=== PATIENT | male | born 1945 | race Caucasian/White ===

== ENCOUNTER 2021-08-13 00:54 | Day surgery (SDC) | payer MEDICARE, SELFPAY ==
[2021-08-04 10:23] VITALS: BMI 26.6
[2021-08-13 09:15] VITALS: BP 126/80; PULSE 56; RESP 18; TEMP 36.1; O2SAT 100
[2021-08-13] MEDS: LACTATED RINGERS 1,000 ML 150 ML IV CONT (09:26)
--- NOTE | 2021-08-13 09:31 | WPDGICN ---
Assessment and Plan Assessment and plan (1) History of colon polyps: Code(s): Z86.010 - Personal history of colonic polyps Status: Inactive Assessment and Plan: Patient has a prior history of colon polyps. Most recently 2018. He presents today for follow-up colonoscopy screening. Further recommendations will be given after endoscopy. GI Consult Note Consult date/time: 08/13/21 09:31 HPI: Marilu Sim is a 76 year old male Presents for colonoscopy. Patient has a history of colon polyps on previous colonoscopies most recently 2018. Patient's current weight appetite bowel movements are normal. He denies abdominal pain. He has had no bleeding. Presents today for screening colonoscopy. Review of Systems Review of Systems: All systems reviewed & are unremarkable except as noted in HPI and below PMFSH Past Medical History Medical History (Updated 08/13/21 @ 09:32 by Julio Faustin MD) CAD in [place] artery Dyslipidemia GERD without esophagitis History of colon polyps Surgical History Surgical History History of bilateral inguinal hernia repair multiple. last was left inguinal hernia repair in 11/2010 History of heart artery stent (~09/2007) History of tonsillectomy (~194) [place] teeth extracted (~1960) Family History Family History Father Family history of coronary artery disease Family history of cardiovascular disease Mother Family history of coronary artery disease Acute myocardial infarction Family history of cardiovascular disease Sibling Family history of malignant neoplasm of ovary Other Cerebrovascular accident Diabetes mellitus Social History Social History Smoking packs per day: 1 Smoking cigarettes per day: 20.0 Years smoked: 30 Smoking pack-years: 30.00 Smoking status: Former smoker Tobacco type: cigarettes Second hand tobacco smoke exposure: No Smoking end date: 11/07/88 Alcohol intake: current Drinks per week: 12 Substance use: never Substance use type: does not use Living arrangements: with family Gender identity (if verbalized by the patient): Female Sexual Orientation (if Verbalized by the Patient): Straight or Heterosexual Spiritual care concerns: No Agree to blood products: Yes Meds Home Medications and Allergies Home Medications Medication Instructions Recorded Confirmed Type aspirin 325 mg tablet 325 mg PO DAILY 06/09/20 08/04/21 History jyyxcacw-nnf-nemsv acid 300 1 tablet PO DAILY 06/09/20 08/04/21 History mcg-lycopene 600 mcg-lutein 300 mcg tablet omega-3 fatty acids-fish oil 360 1 cap PO DAILY 06/09/20 08/04/21 History mg-1,200 mg capsule metoprolol succinate 50 mg 50 mg PO DAILY #90 tablet 03/05/21 08/04/21 Rx tablet,extended release 24 hr omeprazole 20 mg capsule,delayed 20 mg PO DAILY #90 cap 06/01/21 08/04/21 Rx release atorvastatin 40 mg tablet 40 mg PO QHS tablet 06/23/21 08/04/21 History ferrous sulfate 325 mg (65 mg 325 mg PO .2xwk tablet 06/23/21 08/04/21 History iron) tablet lutein 20 mg PO DAILY 08/04/21 08/04/21 History Allergies Allergy/AdvReac Type Severity Reaction Status Date / Time No Known Allergies Allergy Verified 08/13/21 09:13 Vital Signs Vital Signs - 24 hr 08/13/21 09:15 Temperature 96.9 F L Pulse Rate 56 L Respiratory Rate 18 Blood Pressure 126/80 Pulse Oximetry 100 Exam Narrative: Physical exam reveals patient to be alert. Vital signs stable. HEENT exam is unremarkable. Patient is anicteric. Lungs are clear to auscultation and percussion. Heart is without murmur or extra sounds. Abdominal exam bowel sounds are present soft nontender with no organomegaly. Digital external rectal exam is normal.
--- NOTE | 2021-08-13 09:50 | WPDANESEPPF ---
Anes - Initial Pre Proc Eval Procedure: Operation Date: 08/13/21 10:30 Proposed Procedures p Screening Colonoscopy - Julio Faustin MD Date/Time: 08/13/21 09:50 Surgeon: Julio Faustin MD Pre Op Diagnosis: hx of colon polyps Patient Data Age: 76 Gender: M Height: 1.75 m Weight: 79.6 kg Last Vital Signs Temp 96.9 F L 08/13/21 09:15 Pulse 56 L 08/13/21 09:15 Resp 18 08/13/21 09:15 BP 126/80 08/13/21 09:15 Pulse Ox 100 08/13/21 09:15 Allergies Allergy/AdvReac Type Severity Reaction Status Date / Time No Known Allergies Allergy Verified 08/13/21 09:13 Home Medications Medication Instructions Recorded Confirmed Type aspirin 325 mg tablet 325 mg PO DAILY 06/09/20 08/04/21 History jtcchgoj-qjx-jpcmq acid 300 1 tablet PO DAILY 06/09/20 08/04/21 History mcg-lycopene 600 mcg-lutein 300 mcg tablet omega-3 fatty acids-fish oil 360 1 cap PO DAILY 06/09/20 08/04/21 History mg-1,200 mg capsule metoprolol succinate 50 mg 50 mg PO DAILY #90 tablet 03/05/21 08/04/21 Rx tablet,extended release 24 hr omeprazole 20 mg capsule,delayed 20 mg PO DAILY #90 cap 06/01/21 08/04/21 Rx release atorvastatin 40 mg tablet 40 mg PO QHS tablet 06/23/21 08/04/21 History ferrous sulfate 325 mg (65 mg 325 mg PO .2xwk tablet 06/23/21 08/04/21 History iron) tablet lutein 20 mg PO DAILY 08/04/21 08/04/21 History Patient hx anesthesia problems: none Family hx anesthesia problems: none Results Review: All pre-operative results and documents have been reviewed as part of the pre-operative evaluation. COUNT INCLUDES THE [facility] Past Medical History Medical History (Updated 08/13/21 @ 09:32 by Julio Faustin MD) CAD in [place] artery Dyslipidemia GERD without esophagitis History of colon polyps Surgical History Surgical History History of bilateral inguinal hernia repair multiple. last was left inguinal hernia repair in 11/2010 History of heart artery stent (~09/2007) History of tonsillectomy (~1949) [place] teeth extracted (~1960) Family History Family History Father Family history of coronary artery disease Family history of cardiovascular disease Mother Family history of coronary artery disease Acute myocardial infarction Family history of cardiovascular disease Sibling Family history of malignant neoplasm of ovary Other Cerebrovascular accident Diabetes mellitus Social History Social History Smoking packs per day: 1 Smoking cigarettes per day: 20.0 Years smoked: 30 Smoking pack-years: 30.00 Smoking status: Former smoker Tobacco type: cigarettes Second hand tobacco smoke exposure: No Smoking end date: 11/07/88 Alcohol intake: current Drinks per week: 12 Substance use: never Substance use type: does not use Living arrangements: with family Gender identity (if verbalized by the patient): Female Sexual Orientation (if Verbalized by the Patient): Straight or Heterosexual Spiritual care concerns: No Agree to blood products: Yes Anes - Eval Final PreProcedure Day of Procedure 08/13/21 09:50 Patient weight: overweight Heart: regular rate and rhythm Lungs: clear to auscultation Airway: Mallampati scale class II Neurological: alert and oriented Last oral intake: >/= 8 hours ASA classification: III Emergent: no Anesthetic plan: proceed Anesthesia type and monitoring: general GIVS and standard monitoring Results Review: All pre-operative results and documents have been reviewed as part of the pre-operative evaluation. Informed Consent: The patient's anesthetic plan and its attendant risks and benefits were discussed with the patient/family/POA. Questions were solicited and answers provided to the satisfaction of the patient/family/POA.
--- NOTE | 2021-08-13 10:26 | SUR.OPER ---
Dr. Faustin advised that one out of 3 polyps not retrieved. Yamile Bernal 08/13/21 @ 10:27
[2021-08-13 10:29] VITALS: BP 108/53; PULSE 54; RESP 16; O2SAT 98
[2021-08-13 10:39] VITALS: BP 116/52; PULSE 50; RESP 14; O2SAT 99
[2021-08-13 10:49] VITALS: BP 123/66; PULSE 52; RESP 14; O2SAT 100
== END 2021-08-13 11:03 | disposition home or self-care (01) ==
PROVIDERS: PCP Family Medicine; Visit Provider Internal Medicine Gastroenterology
PROC: 0DJD8ZZ Inspection of Lower Intestinal Tract, Via Natural or Artificial Opening Endoscopic (ICD-10-PCS; CPT 45378; principal; 2021-08-13 10:30)
DX: Z12.11 Encounter for screening for malignant neoplasm of colon (principal); K63.5 Polyp of colon; K64.8 Other hemorrhoids; I25.10 Atherosclerotic heart disease of native coronary artery without angina pectoris; E78.5 Hyperlipidemia, unspecified; K21.9 Gastro-esophageal reflux disease without esophagitis; Z95.5 Presence of coronary angioplasty implant and graft; Z87.891 Personal history of nicotine dependence; Z79.82 Long term (current) use of aspirin
CPT/HCPCS: 45385; 88305; J2704; J7120

== ENCOUNTER 2022-10-25 11:57 | Outpatient (CLI) | payer MEDICARE, SELFPAY ==
[2022-10-25 12:13] LABS: Basophils Percent Auto 0.6 % (0.2-1.2); Eosinophils Absolute Auto 0.2 K/mm3 (0-0.3); Eosinophils Percent Auto 2.6 % (0-4.4); Hematocrit 46.5 % (42.0-52.0); Immature Granulocyte Absolute 0.03 K/mm3 (0.00-0.031); Immature Granulocyte Percent A 0.4 % (0-0.5); Lymphocytes Absolute Auto 1.13 K/mm3 (0.9-3.2); Lymphocytes Percent Auto 15.6 % (18.3-44.2); Mean Corpuscular HGB Conc 32.3 g/dl (32-36); Mean Corpuscular Hemoglobin 27.6 pg (26-34); Mean Corpuscular Volume 85.6 fl (80-100); Mean Platelet Volume 8.7 fl (7.4-10.4); Monocytes Absolute Auto 0.8 K/mm3 (0.1-0.6); Monocytes Percent Auto 11.1 % (2.6-8.5); Neutrophils Percent Auto 69.7 % (45.5-73.1); Platelet Count Result 169 k/mm3 (150-375); Red Blood Count 5.43 M/mm3 (4.6-6.20); Red Cell Distribution Width 15.2 % (11.5-14.5); White Blood Count 7.2 K/mm3 (4.5-10.0)
[2022-10-25 18:13] LABS: Alanine Aminotransferase 25 U/L (6-50); Albumin Level 4.3 g/dL (3.5-5.1); Alkaline Phosphatase 71 U/L (38-126); Anion Gap 7 mmol/L (8-16); Aspartate Amino Transferase 30 U/L (17-59); Bilirubin,Total 0.6 mg/dL (0.2-1.3); Blood Urea Nitrogen 16 mg/dL (9-20); Calcium 9.1 mg/dL (8.4-10.2); Carbon Dioxide 31 mmol/L (22-30); Chloride 103 mmol/L (98-107); Estimated Glomerular Filt Rate > 60; Glucose 72 mg/dL (65-110); Potassium 4.2 mmol/L (3.4-5.0); Sodium 141 mmol/L (137-145)
[2022-10-25 18:14] LABS: Iron 80 ug/dL (49-181)
[2022-10-25 18:50] LABS: Percent Iron Saturation 23 % (20-50)
[2022-10-25 19:18] LABS: Folic Acid > 20.0 ng/mL (2.76->20)
[2022-10-28 09:24] LABS: Methylmalonic Acid 164 nmol/L (87-318)
[2022-10-29 10:40] LABS: Reference Lab Test Result Negative
== END 2022-10-25 11:58 | disposition home or self-care (01) ==
LOC: ANHLAB 11:57
PROVIDERS: PCP Family Medicine; Visit Provider Internal Medicine Hematology & Oncology
DX: D69.59 Other secondary thrombocytopenia (principal); D64.9 Anemia, unspecified
CPT/HCPCS: 36415; 80053; 82607; 82728; 82746; 83540; 83550; 83921; 85025; 86023

== ENCOUNTER → 2022-11-02 08:34 | Outpatient (CLI) | payer MEDICARE, SELFPAY ==
--- NOTE | ~2022-11-02 | US_ITS ---
Abdominal Sonogram: Real-time sonographic imaging of the abdomen was performed. Clinical History: Thrombocytopenia Findings: The liver appears normal with no evidence of solid mass lesion or bile duct dilatation. Sm all right hepatic cyst noted. Main portal vein demonstrates normal direction of flow. The spleen is n ormal in size without evidence of focal lesion. The gallbladder is well distended, and appears pranav l with no evidence of gallstone or wall thickening. The common bile duct measures 3 mm. The visualiz ed pancreas, aorta, and IVC are unremarkable. The right kidney measures 9.3 cm in length and the lef t kidney measures 9.7 cm. There is no hydronephrosis or renal calculus. Impression: No significant abnormality seen. Reviewed, dictated and finalized at location . [facility] Impression: No significant abnormality seen.
== END ==
PROVIDERS: PCP Family Medicine; Visit Provider Internal Medicine Hematology & Oncology
DX: D69.59 Other secondary thrombocytopenia (principal)
CPT/HCPCS: 76700

== ENCOUNTER 2023-05-19 12:33 | Outpatient (CLI) | payer MEDICARE, SELFPAY ==
[2023-05-19 12:47] LABS: Basophils Absolute Auto 0.1 K/mm3 (0.0-0.1); Basophils Percent Auto 0.9 % (0.2-1.2); Eosinophils Absolute Auto 0.2 K/mm3 (0-0.3); Eosinophils Percent Auto 3.6 % (0-4.4); Hematocrit 48.4 % (42.0-52.0); Immature Granulocyte Absolute 0.01 K/mm3 (0.00-0.031); Immature Granulocyte Percent A 0.2 % (0-0.5); Immature Platelet Fraction Pct 2.2 % (0.9-11.2); Lymphocytes Absolute Auto 1.09 K/mm3 (0.9-3.2); Lymphocytes Percent Auto 20.5 % (18.3-44.2); Mean Corpuscular HGB Conc 33.1 g/dl (32-36); Mean Corpuscular Hemoglobin 30.2 pg (26-34); Mean Corpuscular Volume 91.3 fl (80-100); Mean Platelet Volume 9.8 fl (7.4-10.4); Monocytes Absolute Auto 0.6 K/mm3 (0.1-0.6); Monocytes Percent Auto 10.7 % (2.6-8.5); Neutrophils Absolute Auto 3.4 K/mm3 (1.3-6.7); Neutrophils Percent Auto 64.1 % (45.5-73.1); Platelet Count Result 120 k/mm3 (150-375); Red Cell Distribution Width 14.4 % (11.5-14.5); White Blood Count 5.3 K/mm3 (4.5-10.0)
[2023-05-19 12:51] LABS: Blood Urea Nitrogen 18 mg/dL (8-26); Carbon Dioxide 29 mmol/L (22-30); Chloride 103 mmol/L (98-109); Estimated Glomerular Filt Rate > 60; Glucose 103 mg/dL (70-105); Ionized Calcium (POC) 1.21 mmol/L (1.11-1.31); Potassium 4.5 mmol/L (3.5-4.9); Sodium 144 mmol/L (138-146)
[2023-05-19 13:38] LABS: Alanine Aminotransferase 32 U/L (6-50); Albumin Level 4.1 g/dL (3.5-5.1); Alkaline Phosphatase 76 U/L (38-126); Anion Gap 2 mmol/L (8-16); Aspartate Amino Transferase 37 U/L (17-59); Bilirubin,Total 0.8 mg/dL (0.2-1.3); Blood Urea Nitrogen 18 mg/dL (9-20); Calcium 9.3 mg/dL (8.4-10.2); Carbon Dioxide 32 mmol/L (22-30); Chloride 105 mmol/L (98-107); Estimated Glomerular Filt Rate > 60; Glucose 102 mg/dL (65-110); Potassium 4.6 mmol/L (3.4-5.0); Sodium 139 mmol/L (137-145)
== END 2023-05-19 12:34 | disposition home or self-care (01) ==
LOC: ANHLAB 12:34
PROVIDERS: PCP Family Medicine; Visit Provider Internal Medicine Hematology & Oncology
DX: D64.9 Anemia, unspecified (principal)
CPT/HCPCS: 36415; 80047; 80053; 85025; 85055

== ENCOUNTER 2023-06-30 13:55 | Outpatient (CLI) | payer MEDICARE, SELFPAY ==
[2023-06-30 17:36] LABS: Vitamin D 25 Hydroxy 50.9 ng/mL
[2023-06-30 20:27] LABS: Prostate Specific Antigen 1.8 ng/mL (< OR = 4.0)
== END 2023-06-30 13:56 | disposition home or self-care (01) ==
LOC: ANHGOSHLAB 14:19
PROVIDERS: PCP Family Medicine; Visit Provider Family Medicine
DX: E53.8 Deficiency of other specified B group vitamins (principal); E55.9 Vitamin D deficiency, unspecified; N40.0 Benign prostatic hyperplasia without lower urinary tract symptoms; Z12.5 Encounter for screening for malignant neoplasm of prostate; R73.9 Hyperglycemia, unspecified
CPT/HCPCS: 36415; 82306; 82607; 83036; 84153; G0103

== ENCOUNTER 2023-11-16 12:49 | Outpatient (CLI) | payer MEDICARE, SELFPAY ==
[2023-11-16 13:02] LABS: Basophils Percent Auto 0.6 % (0.2-1.2); Eosinophils Absolute Auto 0.2 K/mm3 (0-0.3); Eosinophils Percent Auto 3.9 % (0-4.4); Hematocrit 44.1 % (42.0-52.0); Hemoglobin 14.2 g/dL (14.0-18.0); Immature Granulocyte Absolute 0.01 K/mm3 (0.00-0.031); Immature Granulocyte Percent A 0.2 % (0-0.5); Lymphocytes Absolute Auto 1.26 K/mm3 (0.9-3.2); Lymphocytes Percent Auto 23.2 % (18.3-44.2); Mean Corpuscular HGB Conc 32.2 g/dl (32-36); Mean Corpuscular Hemoglobin 27.8 pg (26-34); Mean Corpuscular Volume 86.5 fl (80-100); Mean Platelet Volume 9.3 fl (7.4-10.4); Monocytes Absolute Auto 0.7 K/mm3 (0.1-0.6); Monocytes Percent Auto 12.7 % (2.6-8.5); Neutrophils Absolute Auto 3.2 K/mm3 (1.3-6.7); Neutrophils Percent Auto 59.4 % (45.5-73.1); Platelet Count Result 139 k/mm3 (150-375); White Blood Count 5.4 K/mm3 (4.5-10.0)
[2023-11-16 13:08] LABS: Blood Urea Nitrogen 11 mg/dL (8-26); Carbon Dioxide 27 mmol/L (22-30); Chloride 101 mmol/L (98-109); Estimated Glomerular Filt Rate > 60; Glucose 87 mg/dL (70-105); Ionized Calcium (POC) 1.18 mmol/L (1.11-1.31); Potassium 4.1 mmol/L (3.5-4.9); Sodium 142 mmol/L (138-146)
[2023-11-16 16:36] LABS: Alanine Aminotransferase 32 U/L (6-50); Albumin Level 3.9 g/dL (3.5-5.1); Alkaline Phosphatase 75 U/L (38-126); Anion Gap 4 mmol/L (8-16); Aspartate Amino Transferase 37 U/L (17-59); Bilirubin,Total 0.8 mg/dL (0.2-1.3); Blood Urea Nitrogen 12 mg/dL (9-20); Calcium 9.1 mg/dL (8.4-10.2); Carbon Dioxide 31 mmol/L (22-30); Chloride 105 mmol/L (98-107); Estimated Glomerular Filt Rate > 60; Glucose 84 mg/dL (65-110); Potassium 4.2 mmol/L (3.4-5.0); Sodium 140 mmol/L (137-145)
== END 2023-11-16 12:50 | disposition home or self-care (01) ==
LOC: ANHLAB 12:50
PROVIDERS: PCP Family Medicine; Visit Provider Internal Medicine Hematology & Oncology
DX: D64.9 Anemia, unspecified (principal)
CPT/HCPCS: 36415; 80047; 80053; 85025

== ENCOUNTER 2024-07-10 09:52 | Outpatient (CLI) | payer MEDICARE, SELFPAY ==
[2024-07-10 14:53] LABS: Basophils Absolute Auto 0.1 K/mm3 (0.0-0.1); Basophils Percent Auto 1.2 % (0.2-1.2); Eosinophils Absolute Auto 0.2 K/mm3 (0-0.3); Eosinophils Percent Auto 4.2 % (0-4.4); Hematocrit 49.4 % (42.0-52.0); Hemoglobin 15.6 g/dL (14.0-18.0); Immature Granulocyte Absolute 0.01 K/mm3 (0.00-0.031); Immature Granulocyte Percent A 0.2 % (0-0.5); Lymphocytes Absolute Auto 1.37 K/mm3 (0.9-3.2); Lymphocytes Percent Auto 27.5 % (18.3-44.2); Mean Corpuscular HGB Conc 31.6 g/dl (32-36); Mean Corpuscular Hemoglobin 27.4 pg (26-34); Mean Corpuscular Volume 86.8 fl (80-100); Mean Platelet Volume 9.9 fl (7.4-10.4); Monocytes Absolute Auto 0.6 K/mm3 (0.1-0.6); Neutrophils Absolute Auto 2.7 K/mm3 (1.3-6.7); Neutrophils Percent Auto 54.9 % (45.5-73.1); Platelet Count Result 102 k/mm3 (150-375); Red Blood Count 5.69 M/mm3 (4.6-6.20)
[2024-07-10 14:58] LABS: Alanine Aminotransferase 32 U/L (6-50); Albumin Level 4.2 g/dL (3.5-5.1); Alkaline Phosphatase 70 U/L (38-126); Anion Gap 11 mmol/L (4-12); Aspartate Amino Transferase 48 U/L (17-59); Bilirubin,Total 0.8 mg/dL (0.2-1.3); Blood Urea Nitrogen 17 mg/dL (9-20); Calcium 8.9 mg/dL (8.4-10.2); Carbon Dioxide 28 mmol/L (22-30); Chloride 101 mmol/L (98-107); Cholesterol 157 mg/dL (0-200); Estimated Glomerular Filt Rate > 60; Glucose 95 mg/dL (65-110); HDL Direct 42 mg/dL; Sodium 140 mmol/L (137-145); Triglycerides 131 mg/dL (<150)
[2024-07-10 15:09] LABS: LDL Cholesterol Direct 89 mg/dL
[2024-07-10 15:27] LABS: Vitamin D 25 Hydroxy 49.1 ng/mL
== END 2024-07-10 09:53 | disposition home or self-care (01) ==
LOC: ANHGOSHLAB 09:53
PROVIDERS: PCP Family Medicine; Visit Provider Family Medicine
DX: E78.5 Hyperlipidemia, unspecified (principal); D69.6 Thrombocytopenia, unspecified; Z00.00 Encounter for general adult medical examination without abnormal findings; I10 Essential (primary) hypertension; E53.8 Deficiency of other specified B group vitamins; E55.9 Vitamin D deficiency, unspecified; Z12.5 Encounter for screening for malignant neoplasm of prostate
CPT/HCPCS: 36415; 80053; 80061; 82306; 82607; 84153; 84443; 85025; G0103

== ENCOUNTER 2024-07-10 10:16 | Outpatient (CLI) | payer MEDICARE, SELFPAY ==
--- NOTE | ~2024-07-10 | XR_ITS ---
EXAMINATION: XR lumbar spine 2-3V DATE: 07/10/2024 10:27 INDICATION: Low back pain, unspecified. TECHNIQUE: 3 views of lumbar spine were obtained. COMPARISON: None. FINDINGS: There is 5 degrees dextrocurvature of thoracolumbar spine. There is mild chronic anterior w edging of T10-T12 vertebral bodies. There is mildly decreased disc height at L1-L2, L2-L3, and L3-L4, severely decreased disc height at L4-L5, and moderately decreased disc height at L5-S1. There is mul tilevel facet joint osteoarthritis, severe in lower lumbar spine. IMPRESSION: 1. Severe lumbar spondylosis. Reviewed, dictated and finalized at location A.
== END 2024-07-10 10:17 | disposition home or self-care (01) ==
PROVIDERS: PCP Family Medicine; Visit Provider Family Medicine
DX: M47.896 Other spondylosis, lumbar region (principal)
CPT/HCPCS: 72100

== ENCOUNTER 2025-01-07 08:58 | Outpatient (CLI) | payer MEDICARE, SELFPAY | END 2025-01-07 08:59 | disposition home or self-care (01) | LOC: GOSHIMG 08:59 | PROVIDERS: PCP Family Medicine; Visit Provider Family Medicine | DX: M25.561 Pain in right knee (principal) | CPT/HCPCS: 73564 ==

== ENCOUNTER 2025-02-01 15:01 | Outpatient (CLI) | payer MEDICARE, SELFPAY ==
--- NOTE | ~2025-02-01 | MR_ITS ---
EXAMINATION: MR shoulder RT wo con, MR humerus RT wo con DATE: 02/01/2025 15:40 INDICATION: Right shoulder pain and contusion post injury 2 weeks prior TECHNIQUE: 1. Magnetic resonance imaging (MRI) of the right shoulder was performed without intravenous contrast. Sequences included axial PD-weighted FS FSE, coronal oblique PD-weighted FS FSE, coronal oblique T2- weighted FS FSE, sagittal PD-weighted FS FSE, and sagittal T1-weighted SE. 2. MRI of the right humerus was obtained without intravenous contrast. Axial, sagittal and coronal T1 -weighted FSE and fluid sensitive FSE STIR. COMPARISON: None. FINDINGS: Coracoacromial arch: The acromion undersurface is curved in morphology (type II). The coracoacromial ligament is normal. S evere acromioclavicular osteoarthritis. Rotator cuff: Moderate supraspinatus and mild infraspinatus tendinopathy without tear. The teres minor tendon is no rmal. Mild subscapularis tendinopathy with tear involving the cephalad half of the greater tuberosity footplate. The inferior half of the subscapularis tendon as well as the bursal side of the more ceph alad tendon remain intact, the latter contiguous with the intact transverse humeral ligament. Normal rotator cuff muscle bulk and signal. Biceps tendon, glenoid labrum and glenohumeral cartilage: Full-thickness tear of the long head biceps tendon with short segment of the frayed tendon remaining attached to the glenoid anchor and reflected anteriorly into the rotator cuff interval. The distal te ar margin is retracted a centimeter below the level of the intertubercular groove. Small amount of fl uid tracking caudally along the course of the retracted tendon. Glenoid labrum is normal. Mild partia l-thickness cartilage loss with smooth chondral surface along the apex of the humeral head. Fluid: Physiologic amount fluid at the glenohumeral joint. No loose osteochondral bodies. Moderate amount of fluid in the subacromial/subdeltoid bursa consistent with mild bursitis. Bones/other: Cystic and hypertrophic changes along both the lesser greater tuberosities consistent with chronic ro tator cuff disease. Bone alignment is normal. No fracture or pathologic marrow replacing process. Asi de from the retracted tear of the long head biceps tendon the musculature and tendons in the right up per arm are otherwise unremarkable. No right elbow joint effusion. IMPRESSION: 1. Full-thickness tear and distal retraction of the long head biceps tendon. 2. Moderate supraspinatus and mild infraspinatus tendinopathy without discrete tear. 3. Mild subscapularis tendinopathy with tear of the cephalad half the lesser tuberosity footplate. 4. 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 5. Mild subacromial/subdeltoid bursitis. Reviewed, dictated and finalized at location B. IMPRESSION: 1. Full-thickness tear and distal retraction of the long head biceps tendon. 2. Moderate supraspinatus and mild infraspinatus tendinopathy without discrete tear. 3. Mild subscapularis tendinopathy with tear of the cephalad half the lesser tu berosity footplate. 4. 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 5. Mild subacromial/subdeltoid bursitis.
== END 2025-02-01 15:02 | disposition home or self-care (01) ==
PROVIDERS: PCP Family Medicine; Visit Provider Family Medicine
DX: S46.111A Strain of muscle, fascia and tendon of long head of biceps, right arm, initial encounter (principal); X58.XXXA Exposure to other specified factors, initial encounter; M19.011 Primary osteoarthritis, right shoulder; M75.51 Bursitis of right shoulder
CPT/HCPCS: 73218; 73221

== ENCOUNTER 2025-02-08 11:56 | Outpatient (CLI) | payer MEDICARE, SELFPAY ==
--- NOTE | ~2025-02-08 | XR_ITS ---
Right Shoulder Technique: AP and scapular Y views were obtained. Clinical History: Strain Findings: No fracture or dislocation is seen. Osseous alignment is anatomic. The glenohumeral and acr omioclavicular joint spaces are preserved. Soft tissues are unremarkable. Impression: Unremarkable right shoulder radiographs. Reviewed, dictated and finalized at [facility]. Impression: Unremarkable right shoulder radiographs.
== END 2025-02-08 11:57 | disposition home or self-care (01) ==
LOC: GOSHIMG 11:57
PROVIDERS: PCP Orthopaedic Surgery; Visit Provider Family Medicine
DX: S46.111A Strain of muscle, fascia and tendon of long head of biceps, right arm, initial encounter (principal); M25.511 Pain in right shoulder; G89.29 Other chronic pain; X58.XXXA Exposure to other specified factors, initial encounter
CPT/HCPCS: 73030